=== PATIENT | male | born 1970 | race Caucasian/White ===

== ENCOUNTER 2018-02-02 11:49 | Inpatient (IN) | payer OTHER ==
[2018-02-02 11:56] VITALS: BMI 38.7
[2018-02-02] MEDS ORDERED: SODIUM CHLORIDE 1,000 ML IV STA (12:29)
[2018-02-02 12:49] LABS: BASO % 0.4 % (0-2.0); HEMATOCRIT 34.7 % (35.4-49); HEMOGLOBIN 11.5 GM/dL (11.7-16.9); LYMPH % 6.1 % (8-40); MCH 27.1 pg (25.7-33.7); MCHC 33.2 g/dl (32.0-35.9); MEAN CELL VOLUME 81.6 fl (80-96); MEAN PLT VOLUME 7.9 fl (7.5-11.1); MONO % 10.8 % (3.8-10.2); NEUT % 82.7 % (42.8-82.8); PLATELET COUNT 440 K/MM3 (134-434); RBC 4.25 M/mm3 (4.00-5.60); RDW 17.9 % (11.9-15.9); WHITE BLOOD COUNT 8.5 K/mm3 (4.0-10.0)
[2018-02-02 13:04] LABS: INR 1.68 (0.83-1.09)
--- NOTE | 2018-02-02 13:05 | PDOC ---
History of Present Illness - History of Present Illness Initial Comments: 02/02/18 15:21 The patient is a 47 year old male, with significant past medical history of pancreatic cancer s/p Whipple and on chemotherapy with the most recent dose yesterday (gemcitabine/Abraxane), pancreatitis, ETOH abuse, who presents to the emergency room today complaining of 2 weeks of shortness of breath that occurs while walking short distances. The patient explains that he started feeling weak and short of breath for example when walking across the street. He notes some mild lightheadedness and also reports some congestion, mild productive cough x 2 days. The patient saw his oncologist Dr Kirk yesterday after his chemotherapy treatment and saw his primary care doctor today who advised him to come into the ED. Denies chest pain, chest tightness. Denies recent travel. Denies recent swelling in the legs bilaterally. Denies abdominal pain, nausea, vomiting. Denies fever, chills. Allergies: NKA PCP: Dr. Ramesh () Oncologist: Dr. Kirk <Gin García - Last Filed: 02/02/18 15:21> - General History Source: Patient Exam Limitations: No Limitations <Luciana Ayers - Last Filed: 02/02/18 15:33> - General Chief Complaint: Shortness of Breath Stated Complaint: SHORTNESS OF BREATH Time Seen by Provider: 02/02/18 12:28 Past History <Gin García - Last Filed: 02/02/18 15:21> - Past Medical History Cancer: Yes (PANCREATIC) COPD: No GI Disorders: Yes (pancreatitis) - Surgical History Abdominal Surgery: Yes (WHIPPLE) - Suicide/Smoking/Psychosocial Hx Smoking History: Never smoked Hx Alcohol Use: Yes Drug/Substance Use Hx: No Substance Use Type: Alcohol Hx Substance Use Treatment: No <Luciana Ayers - Last Filed: 02/02/18 15:33> - Past Medical History Allergies/Adverse Reactions: Allergies Allergy/AdvReac Type Severity Reaction Status Date / Time No Known Allergies Allergy Verified 02/02/18 11:57 Home Medications: Ambulatory Orders NK [No Known Home Medication] 02/02/18 Review of Systems - Review of Systems Able to Perform ROS?: Yes Comments:: 02/02/18 15:21 GENERAL/CONSTITUTIONAL: No fever or chills. +weakness HEAD, EYES, EARS, NOSE AND THROAT: +congestion CARDIOVASCULAR: No chest pain or palpitations, syncope or edema. RESPIRATORY: +SOB on exertion, +productive cough. No wheezing, or hemoptysis. GASTROINTESTINAL No nausea/vomiting. No diarrhea or constipation. No bloody stools. GENITOURINARY: No hematuria, dysuria, frequency, urgency or other changes. MUSCULOSKELETAL: No joint or muscle swelling or pain. No neck or back pain. SKIN: No rash or changes in skin color or lesions. NEUROLOGIC: No headache, vertigo, loss of consciousness, or change in strength/ sensation. HEMATOLOGIC/LYMPHATIC: No anemia, easy bruising/bleeding, or history of blood clots. ALLERGIC/IMMUNOLOGIC: No allergies All other systems reviewed and negative, or as documented in HPI <Gin García - Last Filed: 02/02/18 15:21> *Physical Exam - Vital Signs Last Vital Signs Temp Pulse Resp BP Pulse Ox 98.2 F 100 H 22 111/78 99 02/02/18 11:55 02/02/18 11:55 02/02/18 11:55 02/02/18 11:55 02/02/18 11:55 - Physical Exam Comments: 02/02/18 15:21 General: Well appearing, awake and alert, NAD. HEENT: NCAT, PERRL, EOMI, clear conjunctiva, anicteric, moist mucus membranes, clear oropharynx, no oral lesions. Neck: neck supple, FROM Resp: CTAB, normal and even respirations, no respiratory distress CVS: RRR, no murmurs, 2+ peripheral pulses throughout, no peripheral edema Abdomen: +midline abdominal surgical scar. soft, NTND, no peritoneal signs. No CVAT Back: nontender, normal inspection and ROM MSK: no edema, MACHADO x4, ROM intact. No clubbing or cyanosis. normal bulk and tone. No calf tenderness Neuro: alert, oriented appropriately Skin:+midline abdominal surgical scar. warm and well perfused, cap refill <2 sec, normal color <Gin García - Last Filed: 02/02/18 15:21> - Vital Signs Last Vital Signs Temp Pulse Resp BP Pulse Ox 98.2 F 100 H 22 111/78 99 02/02/18 11:55 02/02/18 11:55 02/02/18 11:55 02/02/18 11:55 02/02/18 11:55 <Luciana Ayers - Last Filed: 02/02/18 15:33> Heart Score/ECG Review - ECG Impressions Normal ECG: Yes Comment:: 02/02/18 15:10 EKG normal sinus rhythm, no interval abnormalities, narrow QRS, ST and T wave segments and morphology normal. Nonspecific T wave abnormalities in III, AVF, no prior EKGs for comparison <Luciana Ayers - Last Filed: 02/02/18 15:33> ED Treatment Course - LABORATORY CBC & Chemistry Diagram: 02/02/18 12:35 02/02/18 12:35 - ADDITIONAL ORDERS Additional order review: Laboratory Results 02/02/18 02/02/18 02/02/18 12:35 12:35 12:29 PT with INR 19.00 H INR 1.68 H PTT (Actin FS) 29.5 Sodium 138 Potassium 3.3 L Chloride 106 Carbon Dioxide 25 Anion Gap 7 L BUN 12 Creatinine 0.9 Creat Clearance w eGFR > 60 Random Glucose 88 Calcium 8.5 Total Bilirubin 1.1 H AST 118 H ALT 89 H Alkaline Phosphatase 135 H Troponin I < 0.02 Total Protein 7.5 Albumin 3.4 02/02/18 12:35 RBC 4.25 MCV 81.6 MCHC 33.2 RDW 17.9 H MPV 7.9 D Neutrophils % 82.7 Lymphocytes % 6.1 L D Monocytes % 10.8 H Eosinophils % 0.0 D Basophils % 0.4 - RADIOLOGY Radiograph Interpretation: 02/02/18 15:11 Chest CTA Impression: 1. No evidence of pulmonary embolism. 2. Faint patchy opacification left upper lobe concerning for acute pneumonia 3. diffuse fatty infiltration of the liver - Medications Given in the ED: ED Medications Discontinued Medications Generic Name Dose Route Start Last Admin Trade Name Freq PRN Reason Stop Dose Admin Sodium Chloride 1,000 mls @ 1,000 mls/hr 02/02/18 12:29 02/02/18 14:06 Normal Saline - IV 02/02/18 13:28 1,000 mls/hr ASDIR STA Administration Potassium Chloride 40 meq 02/02/18 14:12 02/02/18 15:00 K-Dur - PO 02/02/18 14:13 40 meq ONCE ONE Administration <Gin García - Last Filed: 02/02/18 15:21> - LABORATORY CBC & Chemistry Diagram: 02/02/18 12:35 02/02/18 12:35 - ADDITIONAL ORDERS Additional order review: 02/02/18 12:35 RBC 4.25 MCV 81.6 MCHC 33.2 RDW 17.9 H MPV 7.9 D Neutrophils % 82.7 Lymphocytes % 6.1 L D Monocytes % 10.8 H Eosinophils % 0.0 D Basophils % 0.4 - RADIOLOGY Radiology Studies Ordered: Category Date Time Status CHEST X-RAY PORTABLE* [RAD] Stat Radiology 02/02/18 12:29 Ordered <Luciana Ayersramiro - Last Filed: 02/02/18 15:33> Medical Decision Making - Medical Decision Making 02/02/18 13:52 Aroldo 47 YOM with history of pancreatitis, ETOH abuse, pancreatic cancer s/p Whipple and currently on Chemo therapy on gemcitabine/Abraxane, last dose yesterday, presenting with progressive SOB with walking/mild exertion. + congestion. No cp or dangelo/dizziness/fever or chills, no n/v/d, abd pain or urinary sx. DDx angina, PE, pneumonia, bronchitis, cardiomyopathy, ACS/electrolyte and metabolic derangements. Pleurisy, pleural effusion. Vital signs reviewed, wnl. notable for HR at 100 Prior notes reviewed, including admissions, discharges and consultations. laboratory results and imaging reviewed, basic labs and lytes wnl, Cr normal. notable for abnormal coags/LFTS in setting of known pancreatic malignancy and on chemo tx. AST>ALT, c/w underlying alcoholic liver disease. EKG normal sinus rhythm, no interval abnormalities, narrow QRS, ST and T wave segments and morphology normal. Nonspecific T wave abnormalities in III, AVF, no prior EKGs for comparison CT chest angio neg for PE. however, patchy infiltrates in left upper lobe c/w pneumonia, IV zosyn for empiric coverage. Blood cultures, lactic acid. IV zosyn for immuncompromised pneumonia. IVF, hydration. no O2 requirements. no indwelling cath/lines. Dispo: admit for pneumonia in immunocompromised patient. Admit to hospitalist, medical management, hydration, abx and further care. 02/02/18 15:31 02/02/18 15:33 <Luciana Ayers - Last Filed: 02/02/18 15:33> *DC/Admit/Observation/Transfer - Attestations Scribe Attestion: 02/02/18 15:21 Documentation prepared by BRICE Trujillo, acting as medical illustrator for Luciana Ayers MD. <Gin García - Last Filed: 02/02/18 15:21> - Discharge Dispostion Decision to Admit order: Yes Decision to Admit order Date/Time: 02/02/18 15:33 Decision to Admit Order Category Date Time Status Decision to Admit to Hospital Routine Admission 02/02/18 15:06 Active - Attestations Physician Attestion: 02/02/18 13:05 I, Luciana Ayers MD, attest that this document has been prepared under my direction and personally reviewed by me in its entirety. I further attest, that it accurately reflects all work, treatment, procedures and medical decision -making performed by me. <Luciana Ayers - Last Filed: 02/02/18 15:33> Diagnosis at time of Disposition: Immunocompromised patient, Pneumonia, Pancreatic cancer - Discharge Dispostion Condition at time of disposition: Guarded - Referrals Referrals: ON STAFF,NOT [Primary Care Provider] - - Patient Instructions - Post Discharge Activity
[2018-02-02 13:07] LABS: ACTIVATED PTT 29.5 SECONDS (25.2-36.5)
[2018-02-02 13:21] LABS: ALBUMIN 3.4 g/dl (3.4-5.0); ALK PHOS 135 U/L (45-117); ANION GAP 7 MMOL/L (8-16); BLOOD UREA NITROGEN 12 mg/dL (7-18); CALCIUM 8.5 mg/dL (8.5-10.1); CHLORIDE 106 mmol/L (98-107); CO2 25 mmol/L (21-32); CREATININE 0.9 mg/dL (0.55-1.3); GLUCOSE,RANDOM 88 mg/dL (74-106); POTASSIUM 3.3 mmol/L (3.5-5.1); SGOT/AST 118 U/L (15-37); SGPT/ALT 89 U/L (13-61); SODIUM 138 mmol/L (136-145); TOT PROT 7.5 g/dl (6.4-8.2)
[2018-02-02 13:34] LABS: BILIRUBIN,TOTAL 1.1 mg/dL (0.2-1)
[2018-02-02] MEDS ORDERED: POTASSIUM CHLORIDE TABS 20 MEQ TABLET.ER (FP) PO ONE ×2 (14:12→14:53)
--- NOTE | 2018-02-02 15:25 | EKG ---
Test Reason : Blood Pressure : / mmHG Vent. Rate : 076 BPM Atrial Rate : 076 BPM P-R Int : 182 ms QRS Dur : 090 ms QT Int : 420 ms P-R-T Axes : 070 004 032 degrees QTc Int : 472 ms NORMAL SINUS RHYTHM NORMAL ECG NO PREVIOUS ECGS AVAILABLE Confirmed by ANANTH FRANCO, RONNIE ([id number]) on 02/02/2018 3:25:02 PM Referred By: Confirmed By:RONNIE WADSWORTH MD
[2018-02-02] MEDS ORDERED: PIPERACILLIN/TAZOB 4.5 GM 4.5 GM in DEXTROSE 5%-WATER 100 ML IVPB ONE (16:13)
[2018-02-02] MEDS ORDERED: PIPERACILLIN/TAZOB 4.5 GM 4.5 GM/100 ML BAG IVPB ONE (16:17)
--- NOTE | 2018-02-02 16:17 | HP ---
CHIEF COMPLAINT: shortness of breath PCP: Dr. Ramesh ([place]) Oncologist: Dr. Kirk HISTORY OF PRESENT ILLNESS: Patient is a 47 year old male with a significant past medical of pancreatic cancer (diagnosed 2015) whipple procedure, pancreatitis and ETOH abuse He is currently undergoing chemotherapy and his last dose was yesterday. Patient presents to the ED today with c/o of dyspnea with physical exertion. He states that is no longer able to ambulate without feeling profoundly fatigued and short of breath. Even when he takes his kids to the school bus across the street, he feels winded and lightheaded. He reports feeling congested with a productive cough. Patient was advised to come to the ED by his PCP after pt reported his weakness and fatigue. ER course was notable for: (1) zosyn iv (2) cta negative for PE, acute pneumonia seen (3) elevated pt/inr (4) k. 3.3, ast 118, alt 89, Recent Travel: PAST MEDICAL HISTORY: pancreatic cancer (diagnosed 2015) whipple procedure, pancreatitis and ETOH abuse PAST SURGICAL HISTORY: whipple procedure Social History: Smoking: none Alcohol: none Drugs: none Family History: Allergies No Known Allergies Allergy (Verified 02/02/18 11:57) HOME MEDICATIONS: Home Medications Medication Instructions Recorded NK [No Known Home Medication] 02/02/18 PHYSICAL EXAMINATION Vital Signs - 24 hr 02/02/18 11:55 Temperature 98.2 F Pulse Rate 100 H Respiratory 22 Rate Blood Pressure 111/78 O2 Sat by Pulse 99 Oximetry (%) GENERAL: Awake, alert, and fully oriented, in no acute distress. HEAD: Normal with no signs of trauma. EYES: Pupils equal, round and reactive to light, extraocular movements intact, sclera anicteric, conjunctiva clear. No lid lag. EARS, NOSE, THROAT: Ears normal, nares patent, oropharynx clear without exudates. Moist mucous membranes. NECK: Normal range of motion, supple without lymphadenopathy, JVD, or masses. LUNGS: breath sounds equal, clear/diminished to auscultation bilaterally. HEART: Regular rate and rhythm, normal S1 and S2 without murmur, rub or gallop. ABDOMEN: Soft, nontender, not distended, normoactive bowel sounds, no guarding, no rebound, no masses. No hepatomegaly or splenomegaly. MUSCULOSKELETAL: Normal range of motion at all joints. No bony deformities or tenderness. No CVA tenderness. UPPER EXTREMITIES: No peripheral edema. LOWER EXTREMITIES: No peripheral edema. NEUROLOGICAL: Normal speech. Normal gait. PSYCHIATRIC: Cooperative. Good eye contact. Appropriate mood and affect. SKIN: Warm, dry, normal turgor, no rashes or lesions noted, normal capillary refill. Laboratory Results - last 24 hr 02/02/18 02/02/18 02/02/18 12:29 12:35 12:35 WBC 8.5 RBC 4.25 Hgb 11.5 L Hct 34.7 L D MCV 81.6 MCH 27.1 MCHC 33.2 RDW 17.9 H Plt Count 440 H D MPV 7.9 D Absolute Neuts (auto) 7.0 Neutrophils % 82.7 Lymphocytes % 6.1 L D Monocytes % 10.8 H Eosinophils % 0.0 D Basophils % 0.4 Nucleated RBC % 0 PT with INR 19.00 H INR 1.68 H PTT (Actin FS) 29.5 Sodium Potassium Chloride Carbon Dioxide Anion Gap BUN Creatinine Creat Clearance w eGFR Random Glucose Lactic Acid Calcium Total Bilirubin AST ALT Alkaline Phosphatase Troponin I < 0.02 B-Natriuretic Peptide Total Protein Albumin 02/02/18 02/02/18 02/02/18 12:35 15:00 15:30 WBC RBC Hgb Hct MCV MCH MCHC RDW Plt Count MPV Absolute Neuts (auto) Neutrophils % Lymphocytes % Monocytes % Eosinophils % Basophils % Nucleated RBC % PT with INR INR PTT (Actin FS) Sodium 138 Potassium 3.3 L Chloride 106 Carbon Dioxide 25 Anion Gap 7 L BUN 12 Creatinine 0.9 Creat Clearance w eGFR > 60 Random Glucose 88 Lactic Acid 1.3 Calcium 8.5 Total Bilirubin 1.1 H AST 118 H ALT 89 H Alkaline Phosphatase 135 H Troponin I B-Natriuretic Peptide 112.96 Total Protein 7.5 Albumin 3.4 ASSESSMENT/PLAN: Patient is a 47 year old male with a significant past medical of pancreatic cancer (diagnosed 2016) whipple procedure, pancreatitis and ETOH abuse He is currently undergoing chemotherapy and his last dose was yesterday. Patient presents to the ED today with c/o of dyspnea with physical exertion. He states that is no longer able to ambulate without feeling profoundly fatigued and short of breath. Even when he takes his kids to the school bus across the street, he feels winded and lightheaded. He reports feeling congested with a productive cough. Patient was advised to come to the ED by his PCP after pt reported his weakness and fatigue. Imaging: Echo: ordered and pending. Chest CTA: negative for PE, acute pneumonia left upper lobe, faint and patchy opacification concerning for acute pneumonia. chest xray: no evidence of acute pulmonary disease EKG: NSR Pulmonary: Pneumonia, in the setting of immunocompromised patient with recent chemotherapy. Increased dyspnea with physical activity, associated with lightheadedness and general malaise. Will order echo. Start patient on Zosyn and contact ID for further recommendations. Patient on current regimen of gemcitabine/Abraxane chemo therapy. Pulmonary consulted. Pancreatic cancer: Currently undergoing chemotherapy (gemcitabine/abraxane). Received Neulasta 1 week ago. Monitor labs. fen tolerating PO monitor electrolytes low salt diet full code Visit type - Emergency Visit Emergency Visit: Yes ED Registration Date: 02/02/18 Care time: The patient presented to the Emergency Department on the above date and was hospitalized for further evaluation of their emergent condition. - New Patient This patient is new to me today: Yes Date on this admission: 02/03/18 - Critical Care Critical Care patient: No Hospitalist Screening - Colonoscopy Questionnaire Colonoscopy Questionnaire: Colonoscopy Questionnaire - Patient: 50 - 75 years old and never had a screening colonoscopy: Unknown History of colon or rectal polyps, or CA: Unknown History of IBD, Crohn's disease or UC: Unknown History of abdominal radiation therapy as a child: Unknown - Relative: 1 with colon or rectal CA, or polyps at age 60 or younger: Unknown Colon or rectal CA diagnosed at age 45 or younger: Unknown Multiple relatives with colon or rectal CA: Unknown - Outcome: Screening Result: Negative Screen
[2018-02-02] MEDS ORDERED: oxyCODONE HCL 5 MG TABLET PO PRN (20:07)
[2018-02-02] MEDS: HEPARIN NA (PORCINE) 5,000 UNITS/ML 1ML VIAL SQ SCH (22:09)
[2018-02-03] MEDS ORDERED: PIPERACILLIN/TAZOB 3.375 GM 3.375 GM in DEXTROSE 5%-WATER - 50 ML IVPB ONE
[2018-02-03] MEDS ORDERED: PIPERACILLIN/TAZOBACTAM 3.375 GM VIAL IVPB ONE ×4 (00:32→18:13)
[2018-02-03] MEDS ORDERED: DEXTROSE 5%-WATER - 50 ML IVPB ONE ×4 (00:33→18:13)
[2018-02-03] MEDS: MELATONIN 5 MG TABLETS PO PRN (00:56)
[2018-02-03] MEDS: PIPERACILLIN/TAZOB 3.375 GM 3.375 GM in DEXTROSE 5%-WATER - 50 ML IVPB SCH ×4 (05:06→18:17)
[2018-02-03 06:51] LABS: HEMATOCRIT 28.1 % (35.4-49); HEMOGLOBIN 9.2 GM/dL (11.7-16.9); MCHC 32.7 g/dl (32.0-35.9); MEAN CELL VOLUME 82.4 fl (80-96); PLATELET COUNT 245 K/MM3 (134-434); RBC 3.41 M/mm3 (4.00-5.60); RDW 18.2 % (11.9-15.9); WHITE BLOOD COUNT 3.3 K/mm3 (4.0-10.0)
[2018-02-03 07:25] LABS: INR 1.67 (0.83-1.09); PROTHROMBIN TIME (PATIENT) 18.9 SEC (9.7-13.0)
[2018-02-03] MEDS ORDERED: POTASSIUM CHLORIDE ORAL LIQUID 20 MEQ/15 ML PO ONE (07:36)
[2018-02-03] MEDS: LIPASE/PROTEASE/AMYLASE 36,000 UNIT CAPSULE PO SCH ×3 (09:14→18:17)
[2018-02-03] MEDS: HEPARIN NA (PORCINE) 5,000 UNITS/ML 1ML VIAL SQ SCH ×2 (09:14→22:55)
--- NOTE | 2018-02-03 10:30 | CON.ID ---
Consult Consult Specialty:: infectious diseases Reason for Consultation:: pneumonia - History of Present Illness Chief Complaint: sob History of Present Illness: 47 year old male with a significant past medical of pancreatic cancer ( diagnosed 2016) whipple procedure, pancreatitis and ETOH abuse He is currently undergoing chemotherapy and his last dose was yesterday. patient mentions that he had been doing well then he noticed he started becoming sob and then it increased and patient went to his oncologist qasim directed him to go to the hospital He also spoke with primary who told him to to go to the hospital patient came to the hospital was worked up and found to have pneumonia and patient was admitted to the hospital . He reports feeling congested with a productive cough. currently lying down he feels better - History Source History Provided By: Patient Limitations to Obtaining History: No Limitations - Past Medical History RN ANESTHETIST: Yes: CVA Gastrointestinal: Yes: Pancreatitis - Alcohol/Substance Use Hx Alcohol Use: Yes - Smoking History Smoking history: Former smoker Have you smoked in the past 12 months: No If you are a former smoker, when did you quit?: 2017 Home Medications - Allergies Allergies/Adverse Reactions: Allergies Allergy/AdvReac Type Severity Reaction Status Date / Time No Known Allergies Allergy Verified 02/02/18 11:57 - Home Medications Home Medications: Ambulatory Orders NK [No Known Home Medication] 02/02/18 Family Disease History - Family Disease History Family Disease History: Other: Father (pancreatitis) Review of Systems - Review of Systems Constitutional: reports: No Symptoms Eyes: reports: No Symptoms HENT: reports: No Symptoms Neck: reports: No Symptoms Cardiovascular: reports: No Symptoms Respiratory: reports: SOB, SOB on Exertion Gastrointestinal: reports: No Symptoms Genitourinary: reports: No Symptoms Musculoskeletal: reports: No Symptoms Integumentary: reports: No Symptoms Neurological: reports: No Symptoms Endocrine: reports: No Symptoms Hematology/Lymphatic: reports: No Symptoms Psychiatric: reports: No Symptoms Physical Exam Vital Signs: Vital Signs Temperature 98.6 F 02/03/18 06:00 Pulse Rate 72 02/03/18 06:00 Respiratory Rate 02/03/18 06:00 Blood Pressure 105/67 02/03/18 06:00 O2 Sat by Pulse Oximetry (%) 92 L 02/02/18 20:46 Constitutional: Yes: Well Nourished, No Distress, Calm HENT: Yes: Atraumatic Neck: Yes: Supple, Trachea Midline Cardiovascular: Yes: Regular Rate and Rhythm Respiratory: Yes: Regular, CTA Bilaterally Gastrointestinal: Yes: Normal Bowel Sounds, Soft Musculoskeletal: Yes: WNL Extremities: Yes: WNL Neurological: Yes: Alert, Oriented Psychiatric: Yes: Alert, Oriented Labs: CBC, BMP 02/03/18 06:30 02/03/18 06:30 Imaging - Results Chest X-ray: Report Reviewed, Image Reviewed Cat Scan: Report Reviewed, Image Reviewed Assessment/Plan Problem List - Problems (1) SOB (shortness of breath) Code(s): R06.02 - SHORTNESS OF BREATH (2) Immunocompromised patient Code(s): D84.9 - IMMUNODEFICIENCY, UNSPECIFIED (3) Pancreatic cancer Code(s): C25.9 - MALIGNANT NEOPLASM OF PANCREAS, UNSPECIFIED (4) Pneumonia Code(s): J18.9 - PNEUMONIA, UNSPECIFIED ORGANISM pln in view of his history we will start him on iv abx monitor for any fevers incentive bonnie rest as per the team close watch on wbc as he has received recent chemo,might decrease
--- NOTE | 2018-02-03 11:27 | PN ---
Physical Exam: SUBJECTIVE: Patient seen and examined at the bedside. Feeling better, denies chest pain or shortness of breath. OBJECTIVE: zosyn day 2 Vital Signs Period Temp Pulse Resp BP Sys/Ortiz Pulse Ox Last 24 Hr 98.2 F-98.6 F 72-100 16-22 100-117/65-78 92-99 GENERAL: Awake, alert, and fully oriented, in no acute distress. HEAD: Normal with no signs of trauma. EYES: Pupils equal, round and reactive to light, extraocular movements intact, sclera anicteric, conjunctiva clear. No lid lag. EARS, NOSE, THROAT: Ears normal, nares patent, oropharynx clear without exudates. Moist mucous membranes. NECK: Normal range of motion, supple without lymphadenopathy, JVD, or masses. LUNGS: breath sounds equal, clear/diminished to auscultation bilaterally. HEART: Regular rate and rhythm, normal S1 and S2 without murmur, rub or gallop. ABDOMEN: Soft, nontender, not distended, normoactive bowel sounds, no guarding, no rebound, no masses. No hepatomegaly or splenomegaly. MUSCULOSKELETAL: Normal range of motion at all joints. No bony deformities or tenderness. No CVA tenderness. UPPER EXTREMITIES: No peripheral edema. LOWER EXTREMITIES: No peripheral edema. NEUROLOGICAL: Normal speech. Normal gait. PSYCHIATRIC: Cooperative. Good eye contact. Appropriate mood and affect. SKIN: Warm, dry, normal turgor, no rashes or lesions noted, normal capillary refill. Laboratory Results - last 24 hr 02/02/18 02/02/18 02/02/18 12:29 12:35 12:35 WBC 8.5 RBC 4.25 Hgb 11.5 L Hct 34.7 L D MCV 81.6 MCH 27.1 MCHC 33.2 RDW 17.9 H Plt Count 440 H D MPV 7.9 D Absolute Neuts (auto) 7.0 Neutrophils % 82.7 Lymphocytes % 6.1 L D Monocytes % 10.8 H Eosinophils % 0.0 D Basophils % 0.4 Nucleated RBC % 0 PT with INR 19.00 H INR 1.68 H PTT (Actin FS) 29.5 Sodium Potassium Chloride Carbon Dioxide Anion Gap BUN Creatinine Creat Clearance w eGFR Random Glucose Lactic Acid Calcium Magnesium Total Bilirubin AST ALT Alkaline Phosphatase Troponin I < 0.02 B-Natriuretic Peptide Total Protein Albumin Blood Type Antibody Screen 02/02/18 02/02/18 02/02/18 12:35 15:00 15:30 WBC RBC Hgb Hct MCV MCH MCHC RDW Plt Count MPV Absolute Neuts (auto) Neutrophils % Lymphocytes % Monocytes % Eosinophils % Basophils % Nucleated RBC % PT with INR INR PTT (Actin FS) Sodium 138 Potassium 3.3 L Chloride 106 Carbon Dioxide 25 Anion Gap 7 L BUN 12 Creatinine 0.9 Creat Clearance w eGFR > 60 Random Glucose 88 Lactic Acid 1.3 Calcium 8.5 Magnesium Total Bilirubin 1.1 H AST 118 H ALT 89 H Alkaline Phosphatase 135 H Troponin I B-Natriuretic Peptide 112.96 Total Protein 7.5 Albumin 3.4 Blood Type Antibody Screen 02/02/18 02/02/18 02/03/18 22:00 22:00 01:15 WBC RBC Hgb Hct MCV MCH MCHC RDW Plt Count MPV Absolute Neuts (auto) Neutrophils % Lymphocytes % Monocytes % Eosinophils % Basophils % Nucleated RBC % PT with INR INR PTT (Actin FS) Sodium Potassium Chloride Carbon Dioxide Anion Gap BUN Creatinine Creat Clearance w eGFR Random Glucose Lactic Acid Calcium Magnesium Total Bilirubin AST ALT Alkaline Phosphatase Troponin I < 0.02 B-Natriuretic Peptide Total Protein Albumin Blood Type A POSITIVE A POSITIVE Antibody Screen Negative 02/03/18 02/03/18 02/03/18 06:30 06:30 06:30 WBC 3.3 L RBC 3.41 L Hgb 9.2 L Hct 28.1 L D MCV 82.4 MCH 27.0 MCHC 32.7 RDW 18.2 H Plt Count 245 D MPV 8.0 Absolute Neuts (auto) Neutrophils % Lymphocytes % Monocytes % Eosinophils % Basophils % Nucleated RBC % PT with INR 18.90 H INR 1.67 H PTT (Actin FS) Sodium 143 Potassium 3.4 L Chloride 111 H Carbon Dioxide 26 Anion Gap 6 L BUN 10 Creatinine 0.9 Creat Clearance w eGFR > 60 Random Glucose 99 Lactic Acid Calcium 7.9 L Magnesium 2.3 Total Bilirubin AST ALT Alkaline Phosphatase Troponin I B-Natriuretic Peptide Total Protein Albumin Blood Type Antibody Screen Active Medications Generic Name Dose Route Start Last Admin Trade Name Freq PRN Reason Stop Dose Admin Heparin Sodium (Porcine) 5,000 unit 02/02/18 22:00 02/03/18 09:14 Heparin - SQ 5,000 unit BID LUIS Administration Piperacillin Sod/Tazobactam 50 mls @ 100 mls/hr 02/02/18 21:45 02/03/18 09:14 Sod 3.375 gm/ Dextrose IVPB 100 mls/hr Q8H-IV LUIS Administration Protocol Melatonin 5 mg 02/03/18 00:48 02/03/18 00:56 Melatonin PO 5 mg HS PRN Administration INSOMNIA Oxycodone HCl 10 mg 02/02/18 20:07 Roxicodone - PO Q6H PRN PAIN LEVEL 7 - 10 Pancrelipase 1 cap 02/03/18 08:00 02/03/18 09:14 Creon 36,000 Units Capsule PO 1 cap TIDCM LUIS Administration ASSESSMENT/PLAN: Patient is a 47 year old male with a significant past medical of pancreatic cancer (diagnosed 2016) whipple procedure, pancreatitis and ETOH abuse He is currently undergoing chemotherapy and his last dose was yesterday. Patient presents to the ED today with c/o of dyspnea with physical exertion. He states that is no longer able to ambulate without feeling profoundly fatigued and short of breath. Even when he takes his kids to the school bus across the street, he feels winded and lightheaded. He reports feeling congested with a productive cough. Patient was advised to come to the ED by his PCP after pt reported his weakness and fatigue. Imaging: Echo: ordered and pending. Chest CTA: negative for PE, acute pneumonia left upper lobe, faint and patchy opacification concerning for acute pneumonia. chest xray: no evidence of acute pulmonary disease EKG: NSR Pulmonary: Pneumonia, in the setting of immunocompromised patient with recent chemotherapy. Increased dyspnea with physical activity, associated with lightheadedness and general malaise. Will order echo. on Zosyn day #2. ID and pulmonary following. Patient on current regimen of gemcitabine/Abraxane chemo therapy. Pancreatic cancer: Currently undergoing chemotherapy (gemcitabine/abraxane). Received Neulasta 1 week ago. Monitor labs. fen tolerating PO monitor electrolytes low salt diet full code Visit type - Emergency Visit Emergency Visit: Yes ED Registration Date: 02/02/18 Care time: The patient presented to the Emergency Department on the above date and was hospitalized for further evaluation of their emergent condition. - New Patient This patient is new to me today: No - Critical Care Critical Care patient: No - Discharge Referral Referred to [facility] Med P.C.: No
[2018-02-03 12:39] LABS: ANION GAP 6 MMOL/L (8-16); BLOOD UREA NITROGEN 10 mg/dL (7-18); CALCIUM 7.6 mg/dL (8.5-10.1); CHLORIDE 110 mmol/L (98-107); CO2 26 mmol/L (21-32); CREATININE 0.9 mg/dL (0.55-1.3); GLUCOSE,RANDOM 98 mg/dL (74-106); MAGNESIUM 2.3 mg/dL (1.8-2.4); POTASSIUM 3.4 mmol/L (3.5-5.1); SGOT/AST 121 U/L (15-37); SGPT/ALT 94 U/L (13-61); SODIUM 142 mmol/L (136-145)
--- NOTE | 2018-02-03 13:21 | ECHO ---
Name: FELI HODGE Exam:Adult Echocardiogram Study Date: 02/03/2018 08:17 AM Age: 47 yrs Reason For Study: DYSPNEA Height: 66 in Weight: 240 lb BSA: 2.2 m2 MMode/2D Measurements & Calculations IVSd: 0.77 cm Ao root diam: 3.0 cm LVIDd: 4.4 cm LA dimension: 3.2 cm LVIDs: 2.8 cm LVPWd: 0.75 cm EDV(Teich): 89.7 ml ESV(Teich): 30.8 ml Doppler Measurements & Calculations MV E max kari: 77.0 cm/sec MV A max kari: 58.2 cm/sec MV E/A: 1.3 MV dec time: 0.22 sec Procedure A complete two-dimensional transthoracic echocardiogram was performed (2D, M-mode, Doppler and color flow Doppler). The study was technically difficult with many images being suboptimal in quality. Left Ventricle The left ventricular size, thickness and function are normal. Ejection Fraction = 55-60%. The left ve ntricular ejection fraction is normal. No regional wall motion abnormalities noted. Regional wall motion abnorm alities cannot be excluded due to limited visualization. Right Ventricle The right ventricle is normal in size and function. Atria Normal left and right atrial size and function. Mitral Valve There is no mitral regurgitation noted. Tricuspid Valve There is trace tricuspid regurgitation. There was insufficient TR detected to calculate RV systolic p ressure. Aortic Valve No hemodynamically significant valvular aortic stenosis. No aortic regurgitation is present. Pulmonic Valve There is no pulmonic valvular regurgitation. Great Vessels The aortic root is normal size. Pericardium/Pleura There is no pericardial effusion. Interpretation Summary The study was technically difficult. The left ventricular size, thickness and function are normal. The right ventricle is normal in size and function. There is trace tricuspid regurgitation. MD Zhou Yousif 02/03/2018 01:21 PM
[2018-02-03 14:06] LABS: URINE APPEARANCE CLEAR; URINE BILIRUBIN NEGATIVE (<2.0 mg/dL); URINE COLOR LTYELLOW; URINE GLUCOSE (UA) NEGATIVE (NEGATIVE); URINE KETONE NEGATIVE (NEGATIVE); URINE LEUK ESTERASE NEGATIVE (NEGATIVE); URINE NITRITE NEGATIVE (NEGATIVE); URINE PROTEIN NEGATIVE (NEGATIVE); URINE UROBILINOGEN NEGATIVE mg/dL (0.2-1.0)
--- NOTE | 2018-02-03 14:08 | CON.PULM ---
Consult Consult Specialty:: PULM/CCM Referred by:: Hospitalist Reason for Consultation:: SOB - History of Present Illness Chief Complaint: SOB History of Present Illness: 47 M, known medical history of pancreatic cancer diagnosed in 2016, S/P whipple procedure, pancreatitis and ETOH abuse. He is currently undergoing chemotherapy and his last dose was Wednesday ([place]/Abraxane). Has received FOLFOX / Gemzar / RT / FOLFIRI in the past. No previous PNA or Pulmonary infections. He has had previous CT imaging but does not recall any abnormalities. No fever or chills. No night sweats or hemoptysis. Has been experiencing CERDA for the past few weeks. Cough has been essentially dry. CTA: (-) PE / diffuse hazy parenchymal process / no consolidations or bronchiectasis. - History Source History Provided By: Patient Limitations to Obtaining History: No Limitations - Past Medical History CONTENT CURATOR: Yes: CVA Gastrointestinal: Yes: Pancreatitis Heme/Onc: Yes: Other (pancreatic cancer ) - Alcohol/Substance Use Hx Alcohol Use: Yes - Smoking History Smoking history: Former smoker Have you smoked in the past 12 months: No If you are a former smoker, when did you quit?: 2017 Home Medications - Allergies Allergies/Adverse Reactions: Allergies Allergy/AdvReac Type Severity Reaction Status Date / Time No Known Allergies Allergy Verified 02/02/18 11:57 - Home Medications Home Medications: Ambulatory Orders NK [No Known Home Medication] 02/02/18 Family Disease History - Family Disease History Family Disease History: Other: Father (pancreatitis) Review of Systems - Review of Systems Constitutional: reports: Malaise. denies: Chills, Fever, Night Sweats Eyes: reports: No Symptoms HENT: reports: No Symptoms Neck: reports: No Symptoms Cardiovascular: reports: Shortness of Breath. denies: Chest Pain, Edema, Palpitations Respiratory: reports: Cough, Snoring, SOB, SOB on Exertion. denies: Hemoptysis , Orthopnea, PND, Wheezing Gastrointestinal: reports: No Symptoms Genitourinary: reports: No Symptoms Breasts: reports: No Symptoms Reported Musculoskeletal: reports: No Symptoms Integumentary: reports: No Symptoms Neurological: reports: No Symptoms Endocrine: reports: No Symptoms Hematology/Lymphatic: reports: No Symptoms Psychiatric: reports: No Symptoms Physical Exam Vital Sings: Vital Signs Temperature 98.6 F 02/03/18 06:00 Pulse Rate 72 02/03/18 06:00 Respiratory Rate 20 02/03/18 06:00 Blood Pressure 105/67 02/03/18 06:00 O2 Sat by Pulse Oximetry (%) 92 L 02/02/18 20:46 Constitutional: Yes: No Distress, Calm Eyes: Yes: Conjunctiva Clear, EOM Intact HENT: Yes: Atraumatic, Normocephalic Neck: Yes: Supple, Trachea Midline Cardiovascular: Yes: Regular Rate and Rhythm Respiratory: Yes: CTA Bilaterally, Cough, Diminished, SOB on Exertion. No: Accessory Muscle Use, On Nasal O2, Rales, Rhonchi, SOB, Stridor, Tachypnea, Wheezes ...Inspection: Yes: WNL ...Clubbing: No Gastrointestinal: Yes: Normal Bowel Sounds, Soft Renal/: Yes: WNL Breast(s): Yes: WNL Musculoskeletal: Yes: WNL Extremities: Yes: WNL Edema: No Peripheral Pulses WNL: Yes Integumentary: Yes: WNL Neurological: Yes: Alert, Oriented ...Motor Strength: WNL Psychiatric: Yes: WNL, Alert, Oriented Labs: CBC, BMP 02/03/18 06:30 02/03/18 06:30 Imaging - Results Chest X-ray: Report Reviewed, Image Reviewed Cat Scan: Report Reviewed, Image Reviewed Problem List - Problems (1) SOB (shortness of breath) Code(s): R06.02 - SHORTNESS OF BREATH (2) Immunocompromised patient Code(s): D84.9 - IMMUNODEFICIENCY, UNSPECIFIED (3) Pancreatic cancer Code(s): C25.9 - MALIGNANT NEOPLASM OF PANCREAS, UNSPECIFIED (4) Pneumonia Code(s): J18.9 - PNEUMONIA, UNSPECIFIED ORGANISM Assessment/Plan Check sputum Check urine antigen ABX per ID: Zosyn O2 as needed VTE prophylaxis Question whether this is a chronic issue (related to previous chemotherapy) or related to his Chemo. ie.: Gemzar reported to cause interstitial pneumonitis and eventually pulmonary fibrosis. Monitor off systemic steroids for now; if he becomes hypoxic or increased WOB: can add steroids at that time. Advised patient that he should bring a copy of the CT chest done at [facility] to his oncologist at [facility]. Will follow. Dr Cordero
[2018-02-04] MEDS ORDERED: PIPERACILLIN/TAZOBACTAM 3.375 GM VIAL IVPB ONE ×3 (01:54→17:08)
[2018-02-04] MEDS ORDERED: DEXTROSE 5%-WATER - 50 ML IVPB ONE ×3 (01:54→17:08)
[2018-02-04] MEDS: PIPERACILLIN/TAZOB 3.375 GM 3.375 GM in DEXTROSE 5%-WATER - 50 ML IVPB SCH ×3 (01:59→17:33)
[2018-02-04 07:18] LABS: EOS % 1.8 % (0-4.5); HEMATOCRIT 27.3 % (35.4-49); HEMOGLOBIN 9.1 GM/dL (11.7-16.9); MCHC 33.2 g/dl (32.0-35.9); MEAN CELL VOLUME 81.3 fl (80-96); MEAN PLT VOLUME 8.2 fl (7.5-11.1); MONO % 2.1 % (3.8-10.2); NEUT % 82.1 % (42.8-82.8); PLATELET COUNT 241 K/MM3 (134-434); RBC 3.36 M/mm3 (4.00-5.60); WHITE BLOOD COUNT 2.8 K/mm3 (4.0-10.0)
[2018-02-04 07:48] LABS: ALBUMIN 2.7 g/dl (3.4-5.0); ALK PHOS 102 U/L (45-117); ANION GAP 3 MMOL/L (8-16); BILIRUBIN,TOTAL 0.9 mg/dL (0.2-1); BLOOD UREA NITROGEN 8 mg/dL (7-18); CHLORIDE 106 mmol/L (98-107); CO2 30 mmol/L (21-32); CREATININE 0.8 mg/dL (0.55-1.3); GLUCOSE,RANDOM 102 mg/dL (74-106); MAGNESIUM 2.2 mg/dL (1.8-2.4); POTASSIUM 3.7 mmol/L (3.5-5.1); SGOT/AST 93 U/L (15-37); SGPT/ALT 93 U/L (13-61); SODIUM 138 mmol/L (136-145); TOT PROT 5.9 g/dl (6.4-8.2)
[2018-02-04] MEDS: LIPASE/PROTEASE/AMYLASE 36,000 UNIT CAPSULE PO SCH ×3 (08:52→17:33)
--- NOTE | 2018-02-04 09:09 | PN ---
Progress Note, Physician History of Present Illness: doing well feels better no complaints no coughing - Current Medication List Current Medications: Active Medications Heparin Sodium (Porcine) (Heparin -) 5,000 unit SQ BID LUIS Last Admin: 02/03/18 22:55 Dose: 5,000 unit Piperacillin Sod/Tazobactam (Sod 3.375 gm/ Dextrose) 50 mls @ 100 mls/hr IVPB Q8H-IV LUIS; Protocol Last Admin: 02/04/18 01:59 Dose: 100 mls/hr Melatonin (Melatonin) 5 mg PO HS PRN PRN Reason: INSOMNIA Last Admin: 02/03/18 00:56 Dose: 5 mg Oxycodone HCl (Roxicodone -) 10 mg PO Q6H PRN PRN Reason: PAIN LEVEL 7 - 10 Pancrelipase (Creon Dr 36,000 Units Capsule) 1 cap PO TIDCM LUIS Last Admin: 02/04/18 08:52 Dose: 1 cap - Objective Vital Signs: Vital Signs Temperature 98.9 F 02/04/18 09:01 Pulse Rate 87 02/04/18 09:01 Respiratory Rate 20 02/04/18 09:01 Blood Pressure 99/58 L 02/04/18 09:01 O2 Sat by Pulse Oximetry (%) 95 02/03/18 20:51 Constitutional: Yes: No Distress, Calm Cardiovascular: Yes: Regular Rate and Rhythm Respiratory: Yes: Regular, CTA Bilaterally Gastrointestinal: Yes: Normal Bowel Sounds, Soft Musculoskeletal: Yes: WNL Extremities: Yes: WNL Neurological: Yes: Alert, Oriented Psychiatric: Yes: Alert, Oriented Labs: CBC, BMP 02/04/18 06:35 02/04/18 06:35 INR, PTT INR 1.67 (0.83-1.09) H 02/03/18 06:30 Assessment/Plan Problem List - Problems (1) SOB (shortness of breath) Code(s): R06.02 - SHORTNESS OF BREATH (2) Immunocompromised patient Code(s): D84.9 - IMMUNODEFICIENCY, UNSPECIFIED (3) Pancreatic cancer Code(s): C25.9 - MALIGNANT NEOPLASM OF PANCREAS, UNSPECIFIED (4) Pneumonia Code(s): J18.9 - PNEUMONIA, UNSPECIFIED ORGANISM pln continue abx monitor for any fevers incentive bonnie rest as per the team await for cx monitor wbc
[2018-02-04] MEDS: HEPARIN NA (PORCINE) 5,000 UNITS/ML 1ML VIAL SQ SCH ×3 (10:03→21:16)
--- NOTE | 2018-02-04 13:30 | PN ---
Physical Exam: SUBJECTIVE: Patient seen and examined at the bedside. Feels better. wants to go home. OBJECTIVE: Vital Signs Period Temp Pulse Resp BP Sys/Ortiz Pulse Ox Last 24 Hr 98.7 F-99.2 F 73-87 20-20 99-122/58-74 95 GENERAL: Awake, alert, and fully oriented, in no acute distress. HEAD: Normal with no signs of trauma. EYES: Pupils equal, round and reactive to light, extraocular movements intact, sclera anicteric, conjunctiva clear. No lid lag. EARS, NOSE, THROAT: Ears normal, nares patent, oropharynx clear without exudates. Moist mucous membranes. NECK: Normal range of motion, supple without lymphadenopathy, JVD, or masses. LUNGS: breath sounds equal, clear/diminished to auscultation bilaterally. HEART: Regular rate and rhythm, normal S1 and S2 without murmur, rub or gallop. ABDOMEN: Soft, nontender, not distended, normoactive bowel sounds, no guarding, no rebound, no masses. No hepatomegaly or splenomegaly. MUSCULOSKELETAL: Normal range of motion at all joints. No bony deformities or tenderness. No CVA tenderness. UPPER EXTREMITIES: No peripheral edema. LOWER EXTREMITIES: No peripheral edema. NEUROLOGICAL: Normal speech. Normal gait. PSYCHIATRIC: Cooperative. Good eye contact. Appropriate mood and affect. SKIN: Warm, dry, normal turgor, no rashes or lesions noted, normal capillary refill. Laboratory Results - last 24 hr 02/03/18 02/04/18 02/04/18 12:30 06:35 06:35 WBC 2.8 L RBC 3.36 L Hgb 9.1 L Hct 27.3 L MCV 81.3 MCH 27.0 MCHC 33.2 RDW 18.0 H Plt Count 241 MPV 8.2 Absolute Neuts (auto) 2.3 Neutrophils % 82.1 Lymphocytes % 13.0 D Monocytes % 2.1 L D Eosinophils % 1.8 D Basophils % 1.0 Nucleated RBC % 0 Sodium 138 Potassium 3.7 Chloride 106 Carbon Dioxide 30 Anion Gap 3 L BUN 8 Creatinine 0.8 Creat Clearance w eGFR > 60 Random Glucose 102 Calcium 8.0 L Magnesium 2.2 Total Bilirubin 0.9 AST 93 H ALT 93 H Alkaline Phosphatase 102 Total Protein 5.9 L Albumin 2.7 L Urine Color Ltyellow Urine Appearance Clear Urine pH 6.0 Ur Specific [place] 1.018 Urine Protein Negative Urine Glucose (UA) Negative Urine Ketones Negative Urine Blood Negative Urine Nitrite Negative Urine Bilirubin Negative Urine Urobilinogen Negative Ur Leukocyte Esterase Negative Active Medications Generic Name Dose Route Start Last Admin Trade Name Freq PRN Reason Stop Dose Admin Heparin Sodium (Porcine) 5,000 unit 02/02/18 22:00 02/04/18 10:45 Heparin - SQ Not Given BID LUIS Piperacillin Sod/Tazobactam 50 mls @ 100 mls/hr 02/02/18 21:45 02/04/18 10:03 Sod 3.375 gm/ Dextrose IVPB 100 mls/hr Q8H-IV LUIS Administration Protocol Melatonin 5 mg 02/03/18 00:48 02/03/18 00:56 Melatonin PO 5 mg HS PRN Administration INSOMNIA Oxycodone HCl 10 mg 02/02/18 20:07 Roxicodone - PO Q6H PRN PAIN LEVEL 7 - 10 Pancrelipase 1 cap 02/03/18 08:00 02/04/18 11:[address] 36,000 Units Capsule PO 1 cap TIDCM LUIS Administration ASSESSMENT/PLAN: Patient is a 47 year old male with a significant past medical of pancreatic cancer (diagnosed 2016) whipple procedure, pancreatitis and ETOH abuse He is currently undergoing chemotherapy. Patient presents to the ED with c/o of dyspnea with physical exertion and was found to have an acute pneumonia. Imaging: Chest CTA: negative for PE, acute pneumonia left upper lobe, faint and patchy opacification concerning for acute pneumonia. chest xray: no evidence of acute pulmonary disease EKG: NSR Pulmonary: Pneumonia, in the setting of immunocompromised patient with recent chemotherapy. Increased dyspnea with physical activity, associated with lightheadedness and general malaise. echo reviewed. on Zosyn day #3. ID and pulmonary following. Patient on current regimen of gemcitabine/Abraxane chemo therapy. sputum culture pending. Pancreatic cancer: Currently undergoing chemotherapy (gemcitabine/abraxane). Received Neulasta 1 month ago. Monitor labs. fen tolerating PO monitor electrolytes low salt diet full code Visit type - Emergency Visit Emergency Visit: Yes ED Registration Date: 02/02/18 Care time: The patient presented to the Emergency Department on the above date and was hospitalized for further evaluation of their emergent condition. - New Patient This patient is new to me today: No - Critical Care Critical Care patient: No - Discharge Referral Referred to [facility] Med P.C.: No
--- NOTE | 2018-02-04 13:51 | PN ---
Progress Note, Physician History of Present Illness: PULMONARY ALERT,NO COMPLAINTS,-SOB,MIN COUGH - Current Medication List Current Medications: Active Medications Heparin Sodium (Porcine) (Heparin -) 5,000 unit SQ BID LUIS Last Admin: 02/04/18 10:45 Dose: Not Given Piperacillin Sod/Tazobactam (Sod 3.375 gm/ Dextrose) 50 mls @ 100 mls/hr IVPB Q8H-IV LUIS; Protocol Last Admin: 02/04/18 10:03 Dose: 100 mls/hr Melatonin (Melatonin) 5 mg PO HS PRN PRN Reason: INSOMNIA Last Admin: 02/03/18 00:56 Dose: 5 mg Oxycodone HCl (Roxicodone -) 10 mg PO Q6H PRN PRN Reason: PAIN LEVEL 7 - 10 Pancrelipase (Creon Dr 36,000 Units Capsule) 1 cap PO TIDCM LUIS Last Admin: 02/04/18 11:45 Dose: 1 cap - Objective Vital Signs: Vital Signs Temperature 98.9 F 02/04/18 09:01 Pulse Rate 87 02/04/18 09:01 Respiratory Rate 20 02/04/18 09:01 Blood Pressure 99/58 L 02/04/18 09:01 O2 Sat by Pulse Oximetry (%) 95 02/03/18 20:51 Constitutional: Yes: Well Nourished, Calm Eyes: Yes: WNL HENT: Yes: WNL Neck: Yes: WNL Cardiovascular: Yes: Regular Rate and Rhythm, S1, S2 Respiratory: Yes: CTA Bilaterally Gastrointestinal: Yes: Normal Bowel Sounds, Soft Extremities: Yes: WNL Edema: No Labs: CBC, BMP 02/04/18 06:35 02/04/18 06:35 INR, PTT INR 1.67 (0.83-1.09) H 02/03/18 06:30 Assessment/Plan Problem List - Problems (1) SOB (shortness of breath) Code(s): R06.02 - SHORTNESS OF BREATH (2) Immunocompromised patient Code(s): D84.9 - IMMUNODEFICIENCY, UNSPECIFIED (3) Pancreatic cancer Code(s): C25.9 - MALIGNANT NEOPLASM OF PANCREAS, UNSPECIFIED (4) Pneumonia Code(s): J18.9 - PNEUMONIA, UNSPECIFIED ORGANISM Assessment/Plan ABX per ID: Zosyn O2 as needed VTE prophylaxis Question whether this is a chronic issue (related to previous chemotherapy) or related to his Chemo. ie.: Gemzar reported to cause interstitial pneumonitis and eventually pulmonary fibrosis. Monitor off systemic steroids for now; if he becomes hypoxic or increased WOB: can add steroids at that time. DR SEYMOUR
[2018-02-04] MEDS: MELATONIN 5 MG TABLETS PO PRN (21:15)
[2018-02-05] MEDS ORDERED: PIPERACILLIN/TAZOBACTAM 3.375 GM VIAL IVPB ONE ×3 (02:16→16:58)
[2018-02-05] MEDS ORDERED: DEXTROSE 5%-WATER - 50 ML IVPB ONE ×3 (02:16→16:58)
[2018-02-05] MEDS: PIPERACILLIN/TAZOB 3.375 GM 3.375 GM in DEXTROSE 5%-WATER - 50 ML IVPB SCH ×3 (02:33→17:24)
[2018-02-05] MEDS: LIPASE/PROTEASE/AMYLASE 36,000 UNIT CAPSULE PO SCH ×3 (08:15→17:24)
[2018-02-05 08:30] LABS: BASO % 1.2 % (0-2.0); EOS % 4.3 % (0-4.5); HEMATOCRIT 30.4 % (35.4-49); HEMOGLOBIN 9.7 GM/dL (11.7-16.9); LYMPH % 11.5 % (8-40); MCH 26.5 pg (25.7-33.7); MEAN CELL VOLUME 82.8 fl (80-96); MEAN PLT VOLUME 8.1 fl (7.5-11.1); MONO % 1.2 % (3.8-10.2); NEUT % 81.8 % (42.8-82.8); PLATELET COUNT 291 K/MM3 (134-434); RBC 3.67 M/mm3 (4.00-5.60); RDW 18.2 % (11.9-15.9); WHITE BLOOD COUNT 2.8 K/mm3 (4.0-10.0)
[2018-02-05 09:13] LABS: ALK PHOS 114 U/L (45-117); ANION GAP 10 MMOL/L (8-16); BILIRUBIN,TOTAL 0.8 mg/dL (0.2-1); BLOOD UREA NITROGEN 7 mg/dL (7-18); CALCIUM 8.8 mg/dL (8.5-10.1); CHLORIDE 107 mmol/L (98-107); CO2 26 mmol/L (21-32); CREATININE 0.7 mg/dL (0.55-1.3); GLUCOSE,RANDOM 99 mg/dL (74-106); POTASSIUM 3.8 mmol/L (3.5-5.1); SGOT/AST 113 U/L (15-37); SGPT/ALT 106 U/L (13-61); SODIUM 142 mmol/L (136-145); TOT PROT 6.5 g/dl (6.4-8.2)
[2018-02-05] MEDS: HEPARIN NA (PORCINE) 5,000 UNITS/ML 1ML VIAL SQ SCH ×2 (09:51→21:41)
--- NOTE | 2018-02-05 10:02 | PN ---
Progress Note, Physician History of Present Illness: doing well feels better says he feels better was able to walk around - Current Medication List Current Medications: Active Medications Heparin Sodium (Porcine) (Heparin -) 5,000 unit SQ BID LUIS Last Admin: 02/05/18 09:51 Dose: Not Given Piperacillin Sod/Tazobactam (Sod 3.375 gm/ Dextrose) 50 mls @ 100 mls/hr IVPB Q8H-IV LUIS; Protocol Last Admin: 02/05/18 09:51 Dose: 100 mls/hr Melatonin (Melatonin) 5 mg PO HS PRN PRN Reason: INSOMNIA Last Admin: 02/04/18 21:15 Dose: 5 mg Oxycodone HCl (Roxicodone -) 10 mg PO Q6H PRN PRN Reason: PAIN LEVEL 7 - 10 Pancrelipase (Creon Dr 36,000 Units Capsule) 1 cap PO TIDCM LUIS Last Admin: 02/05/18 08:15 Dose: 1 cap - Objective Vital Signs: Vital Signs Temperature 98.9 F 02/05/18 06:00 Pulse Rate 79 02/05/18 06:00 Respiratory Rate 02/05/18 06:00 Blood Pressure 111/64 02/05/18 06:00 O2 Sat by Pulse Oximetry (%) 95 02/04/18 20:52 Constitutional: Yes: No Distress, Calm Cardiovascular: Yes: Regular Rate and Rhythm Respiratory: Yes: Regular, CTA Bilaterally Gastrointestinal: Yes: Normal Bowel Sounds, Soft Musculoskeletal: Yes: WNL Extremities: Yes: WNL Neurological: Yes: Alert, Oriented Psychiatric: Yes: Alert, Oriented Labs: CBC, BMP 02/05/18 07:30 02/05/18 07:30 INR, PTT INR 1.67 (0.83-1.09) H 02/03/18 06:30 Assessment/Plan Problem List - Problems (1) SOB (shortness of breath) Code(s): R06.02 - SHORTNESS OF BREATH (2) Immunocompromised patient Code(s): D84.9 - IMMUNODEFICIENCY, UNSPECIFIED (3) Pancreatic cancer Code(s): C25.9 - MALIGNANT NEOPLASM OF PANCREAS, UNSPECIFIED (4) Pneumonia Code(s): J18.9 - PNEUMONIA, UNSPECIFIED ORGANISM pln continue abx monitor for any fevers incentive bonnie rest as per the team await for cx monitor wbc
--- NOTE | 2018-02-05 11:42 | PN ---
Progress Note, Physician History of Present Illness: pulmonary alert,no distress,-sob,-cough - Current Medication List Current Medications: Active Medications Heparin Sodium (Porcine) (Heparin -) 5,000 unit SQ BID LUIS Last Admin: 02/05/18 09:51 Dose: Not Given Piperacillin Sod/Tazobactam (Sod 3.375 gm/ Dextrose) 50 mls @ 100 mls/hr IVPB Q8H-IV LUIS; Protocol Last Admin: 02/05/18 09:51 Dose: 100 mls/hr Melatonin (Melatonin) 5 mg PO HS PRN PRN Reason: INSOMNIA Last Admin: 02/04/18 21:15 Dose: 5 mg Oxycodone HCl (Roxicodone -) 10 mg PO Q6H PRN PRN Reason: PAIN LEVEL 7 - 10 Pancrelipase (Creon Dr 36,000 Units Capsule) 1 cap PO TIDCM LUIS Last Admin: 02/05/18 11:27 Dose: 1 cap - Objective Vital Signs: Vital Signs Temperature 99.1 F 02/05/18 10:00 Pulse Rate 83 02/05/18 10:00 Respiratory Rate 20 02/05/18 10:00 Blood Pressure 106/70 02/05/18 10:00 O2 Sat by Pulse Oximetry (%) 95 02/05/18 09:00 Constitutional: Yes: Well Nourished, Calm Eyes: Yes: WNL HENT: Yes: WNL Neck: Yes: WNL Cardiovascular: Yes: Regular Rate and Rhythm, S1, S2 Respiratory: Yes: CTA Bilaterally Gastrointestinal: Yes: Normal Bowel Sounds, Soft Extremities: Yes: WNL Edema: No Labs: CBC, BMP 02/05/18 07:30 02/05/18 07:30 INR, PTT INR 1.67 (0.83-1.09) H 02/03/18 06:30 Assessment/Plan Problem List - Problems (1) SOB (shortness of breath) Code(s): R06.02 - SHORTNESS OF BREATH (2) Immunocompromised patient Code(s): D84.9 - IMMUNODEFICIENCY, UNSPECIFIED (3) Pancreatic cancer Code(s): C25.9 - MALIGNANT NEOPLASM OF PANCREAS, UNSPECIFIED (4) Pneumonia Code(s): J18.9 - PNEUMONIA, UNSPECIFIED ORGANISM Assessment/Plan ABX per ID: Zosyn O2 as needed VTE prophylaxis Question whether this is a chronic issue (related to previous chemotherapy) or related to his Chemo. ie.: Gemzar reported to cause interstitial pneumonitis and eventually pulmonary fibrosis. abx as per ID DR SEYMOUR
--- NOTE | 2018-02-05 15:13 | PN ---
Physical Exam: SUBJECTIVE: Patient seen and examined at the bedside. ambulating without shortness of breath. feeling better. OBJECTIVE: Vital Signs Period Temp Pulse Resp BP Sys/Ortiz Pulse Ox Last 24 Hr 98.4 F-99.1 F 79-89 20-20 95-111/60-70 95-95 GENERAL: Awake, alert, and fully oriented, in no acute distress. HEAD: Normal with no signs of trauma. EYES: Pupils equal, round and reactive to light, extraocular movements intact, sclera anicteric, conjunctiva clear. No lid lag. EARS, NOSE, THROAT: Ears normal, nares patent, oropharynx clear without exudates. Moist mucous membranes. NECK: Normal range of motion, supple without lymphadenopathy, JVD, or masses. LUNGS: breath sounds equal, clear/diminished to auscultation bilaterally. HEART: Regular rate and rhythm, normal S1 and S2 without murmur, rub or gallop. ABDOMEN: Soft, nontender, not distended, normoactive bowel sounds, no guarding, no rebound, no masses. No hepatomegaly or splenomegaly. MUSCULOSKELETAL: Normal range of motion at all joints. No bony deformities or tenderness. No CVA tenderness. UPPER EXTREMITIES: No peripheral edema. LOWER EXTREMITIES: No peripheral edema. NEUROLOGICAL: Normal speech. Normal gait. PSYCHIATRIC: Cooperative. Good eye contact. Appropriate mood and affect. SKIN: Warm, dry, normal turgor, no rashes or lesions noted, normal capillary refill. Laboratory Results - last 24 hr 02/05/18 02/05/18 07:30 07:30 WBC 2.8 L RBC 3.67 L Hgb 9.7 L Hct 30.4 L MCV 82.8 MCH 26.5 MCHC 32.0 RDW 18.2 H Plt Count 291 D MPV 8.1 Absolute Neuts (auto) 2.3 Neutrophils % 81.8 Lymphocytes % 11.5 Monocytes % 1.2 L Eosinophils % 4.3 D Basophils % 1.2 Nucleated RBC % 0 Sodium 142 Potassium 3.8 Chloride 107 Carbon Dioxide 26 Anion Gap 10 BUN 7 Creatinine 0.7 Creat Clearance w eGFR > 60 Random Glucose 99 Calcium 8.8 Total Bilirubin 0.8 AST 113 H ALT 106 H Alkaline Phosphatase 114 Total Protein 6.5 Albumin 3.0 L Active Medications Generic Name Dose Route Start Last Admin Trade Name Freq PRN Reason Stop Dose Admin Heparin Sodium (Porcine) 5,000 unit 02/02/18 22:00 02/05/18 09:51 Heparin - SQ Not Given BID LUIS Piperacillin Sod/Tazobactam 50 mls @ 100 mls/hr 02/02/18 21:45 02/05/18 09:51 Sod 3.375 gm/ Dextrose IVPB 100 mls/hr Q8H-IV LUIS Administration Protocol Melatonin 5 mg 02/03/18 00:48 02/04/18 21:15 Melatonin PO 5 mg HS PRN Administration INSOMNIA Oxycodone HCl 10 mg 02/02/18 20:07 Roxicodone - PO Q6H PRN PAIN LEVEL 7 - 10 Pancrelipase 1 cap 02/03/18 08:00 02/05/18 11:27 Creon 36,000 Units Capsule PO 1 cap TIDCM LUIS Administration ASSESSMENT/PLAN: Patient is a 47 year old male with a significant past medical of pancreatic cancer (diagnosed 2016) whipple procedure, pancreatitis and ETOH abuse He is currently undergoing chemotherapy. Patient presents to the ED with c/o of dyspnea with physical exertion and was found to have an acute pneumonia. Imaging: Chest CTA: negative for PE, acute pneumonia left upper lobe, faint and patchy opacification concerning for acute pneumonia. chest xray: no evidence of acute pulmonary disease EKG: NSR Pulmonary: Pneumonia, in the setting of immunocompromised patient with recent chemotherapy. patient able to ambulate without dyspnea. feeling better. No exertion with physical activity. Denies lightheadness and general malaise. echo reviewed. on Zosyn day #4. ID and pulmonary following. Patient on current regimen of gemcitabine/Abraxane chemo therapy. sputum culture pending. Pancreatic cancer: Currently undergoing chemotherapy (gemcitabine/abraxane). Received Neulasta 1 month ago. Monitor labs. fen tolerating PO monitor electrolytes low salt diet full code Visit type - Emergency Visit Emergency Visit: Yes ED Registration Date: 02/02/18 Care time: The patient presented to the Emergency Department on the above date and was hospitalized for further evaluation of their emergent condition. - New Patient This patient is new to me today: No - Critical Care Critical Care patient: No - Discharge Referral Referred to [facility] Med P.C.: No
[2018-02-06] MEDS: MELATONIN 5 MG TABLETS PO PRN ×2 (01:15→22:49)
[2018-02-06] MEDS ORDERED: PIPERACILLIN/TAZOBACTAM 3.375 GM VIAL IVPB ONE ×3 (02:34→17:07)
[2018-02-06] MEDS ORDERED: DEXTROSE 5%-WATER - 50 ML IVPB ONE ×3 (02:35→17:07)
[2018-02-06] MEDS: PIPERACILLIN/TAZOB 3.375 GM 3.375 GM in DEXTROSE 5%-WATER - 50 ML IVPB SCH ×3 (02:40→17:14)
[2018-02-06] MEDS: LIPASE/PROTEASE/AMYLASE 36,000 UNIT CAPSULE PO SCH ×3 (08:40→17:13)
[2018-02-06] MEDS: HEPARIN NA (PORCINE) 5,000 UNITS/ML 1ML VIAL SQ SCH ×2 (09:56→21:11)
[2018-02-06 10:49] LABS: BASO % 0.5 % (0-2.0); EOS % 3.2 % (0-4.5); HEMOGLOBIN 9.4 GM/dL (11.7-16.9); MCH 27.4 pg (25.7-33.7); MCHC 33.6 g/dl (32.0-35.9); MEAN CELL VOLUME 81.6 fl (80-96); MONO % 1.7 % (3.8-10.2); NEUT % 84.6 % (42.8-82.8); PLATELET COUNT 242 K/MM3 (134-434); RBC 3.43 M/mm3 (4.00-5.60); RDW 18.3 % (11.9-15.9); WHITE BLOOD COUNT 2.8 K/mm3 (4.0-10.0)
[2018-02-06 11:24] LABS: ALBUMIN 2.7 g/dl (3.4-5.0); ALK PHOS 110 U/L (45-117); ANION GAP 5 MMOL/L (8-16); BILIRUBIN,TOTAL 0.7 mg/dL (0.2-1); BLOOD UREA NITROGEN 8 mg/dL (7-18); CHLORIDE 106 mmol/L (98-107); CO2 26 mmol/L (21-32); CREATININE 0.8 mg/dL (0.55-1.3); GLUCOSE,RANDOM 222 mg/dL (74-106); MAGNESIUM 2.3 mg/dL (1.8-2.4); POTASSIUM 3.9 mmol/L (3.5-5.1); SGOT/AST 107 U/L (15-37); SGPT/ALT 102 U/L (13-61); SODIUM 138 mmol/L (136-145); TOT PROT 6.1 g/dl (6.4-8.2)
--- NOTE | 2018-02-06 11:28 | PN ---
Progress Note, Physician History of Present Illness: stable no issues - Current Medication List Current Medications: Active Medications Heparin Sodium (Porcine) (Heparin -) 5,000 unit SQ BID LUIS Last Admin: 02/06/18 09:56 Dose: Not Given Piperacillin Sod/Tazobactam (Sod 3.375 gm/ Dextrose) 50 mls @ 100 mls/hr IVPB Q8H-IV LUIS; Protocol Last Admin: 02/06/18 09:59 Dose: 100 mls/hr Melatonin (Melatonin) 5 mg PO HS PRN PRN Reason: INSOMNIA Last Admin: 02/06/18 01:15 Dose: 5 mg Pancrelipase (Creon Dr 36,000 Units Capsule) 1 cap PO TIDCM LUIS Last Admin: 02/06/18 08:40 Dose: Not Given - Objective Vital Signs: Vital Signs Temperature 98.8 F 02/06/18 08:53 Pulse Rate 90 02/06/18 08:53 Respiratory Rate 20 02/06/18 08:53 Blood Pressure 104/67 02/06/18 08:53 O2 Sat by Pulse Oximetry (%) 95 02/05/18 22:00 Constitutional: Yes: No Distress, Calm Cardiovascular: Yes: Regular Rate and Rhythm Respiratory: Yes: Regular, CTA Bilaterally Gastrointestinal: Yes: Normal Bowel Sounds, Soft Musculoskeletal: Yes: WNL Extremities: Yes: WNL Neurological: Yes: Alert, Oriented Psychiatric: Yes: Alert, Oriented Labs: CBC, BMP 02/06/18 10:40 02/06/18 10:40 INR, PTT INR 1.67 (0.83-1.09) H 02/03/18 06:30 Assessment/Plan Problem List - Problems (1) SOB (shortness of breath) Code(s): R06.02 - SHORTNESS OF BREATH (2) Immunocompromised patient Code(s): D84.9 - IMMUNODEFICIENCY, UNSPECIFIED (3) Pancreatic cancer Code(s): C25.9 - MALIGNANT NEOPLASM OF PANCREAS, UNSPECIFIED (4) Pneumonia Code(s): J18.9 - PNEUMONIA, UNSPECIFIED ORGANISM pln continue abx monitor for any fevers incentive bonnie rest as per the team await for cx monitor wbc will deescalte tomorrow
--- NOTE | 2018-02-06 13:04 | PN ---
Progress Note, Physician History of Present Illness: pulmonary alert,no distress,-sob at rest or exertion,less cough - Current Medication List Current Medications: Active Medications Heparin Sodium (Porcine) (Heparin -) 5,000 unit SQ BID LUIS Last Admin: 02/06/18 09:56 Dose: Not Given Piperacillin Sod/Tazobactam (Sod 3.375 gm/ Dextrose) 50 mls @ 100 mls/hr IVPB Q8H-IV LUIS; Protocol Last Admin: 02/06/18 09:59 Dose: 100 mls/hr Melatonin (Melatonin) 5 mg PO HS PRN PRN Reason: INSOMNIA Last Admin: 02/06/18 01:15 Dose: 5 mg Pancrelipase (Creon Dr 36,000 Units Capsule) 1 cap PO TIDCM LUIS Last Admin: 02/06/18 11:55 Dose: 1 cap Zolpidem Tartrate (Ambien -) 5 mg PO HS PRN PRN Reason: INSOMNIA - Objective Vital Signs: Vital Signs Temperature 98.8 F 02/06/18 08:53 Pulse Rate 90 02/06/18 08:53 Respiratory Rate 20 02/06/18 08:53 Blood Pressure 104/67 02/06/18 08:53 O2 Sat by Pulse Oximetry (%) 95 02/06/18 09:00 Constitutional: Yes: Well Nourished, Calm Eyes: Yes: WNL HENT: Yes: WNL Neck: Yes: WNL Cardiovascular: Yes: Regular Rate and Rhythm, S1, S2 Respiratory: Yes: Diminished Gastrointestinal: Yes: Normal Bowel Sounds, Soft Extremities: Yes: WNL Edema: No Labs: CBC, BMP 02/06/18 10:40 02/06/18 10:40 INR, PTT INR 1.67 (0.83-1.09) H 02/03/18 06:30 Assessment/Plan Problem List - Problems (1) SOB (shortness of breath) Code(s): R06.02 - SHORTNESS OF BREATH (2) Immunocompromised patient Code(s): D84.9 - IMMUNODEFICIENCY, UNSPECIFIED (3) Pancreatic cancer Code(s): C25.9 - MALIGNANT NEOPLASM OF PANCREAS, UNSPECIFIED (4) Pneumonia Code(s): J18.9 - PNEUMONIA, UNSPECIFIED ORGANISM Assessment/Plan ABX per ID: Zosyn O2 as needed VTE prophylaxis Question whether this is a chronic issue (related to previous chemotherapy) or related to his Chemo. ie.: Gemzar reported to cause interstitial pneumonitis and eventually pulmonary fibrosis. abx as per ID f/u with oncologist at [facility] regarding pulmonary infiltrates whether new or present on prior CTs DR SEYMOUR
--- NOTE | 2018-02-06 14:36 | PN ---
Physical Exam: SUBJECTIVE: Patient seen and examined at the bedside. reports sleeping poorly, but otherwise doing well. denies shortness of breath or dyspnea on exertion. OBJECTIVE: Vital Signs Period Temp Pulse Resp BP Sys/Ortiz Pulse Ox Last 24 Hr 98.7 F-99.4 F 78-90 20-20 103-106/62-69 95-95 GENERAL: Awake, alert, and fully oriented, in no acute distress. HEAD: Normal with no signs of trauma. EYES: Pupils equal, round and reactive to light, extraocular movements intact, sclera anicteric, conjunctiva clear. No lid lag. EARS, NOSE, THROAT: Ears normal, nares patent, oropharynx clear without exudates. Moist mucous membranes. NECK: Normal range of motion, supple without lymphadenopathy, JVD, or masses. LUNGS: breath sounds equal, clear/diminished to auscultation bilaterally. HEART: Regular rate and rhythm, normal S1 and S2 without murmur, rub or gallop. ABDOMEN: Soft, nontender, not distended, normoactive bowel sounds, no guarding, no rebound, no masses. No hepatomegaly or splenomegaly. MUSCULOSKELETAL: Normal range of motion at all joints. No bony deformities or tenderness. No CVA tenderness. UPPER EXTREMITIES: No peripheral edema. LOWER EXTREMITIES: No peripheral edema. NEUROLOGICAL: Normal speech. Normal gait. PSYCHIATRIC: Cooperative. Good eye contact. Appropriate mood and affect. SKIN: Warm, dry, normal turgor, no rashes or lesions noted, normal capillary refill. Laboratory Results - last 24 hr 02/06/18 02/06/18 10:40 10:40 WBC 2.8 L RBC 3.43 L Hgb 9.4 L Hct 28.0 L MCV 81.6 MCH 27.4 MCHC 33.6 RDW 18.3 H Plt Count 242 MPV 8.0 Absolute Neuts (auto) 2.4 Neutrophils % 84.6 H Lymphocytes % 10.0 Monocytes % 1.7 L Eosinophils % 3.2 Basophils % 0.5 Nucleated RBC % 0 Sodium 138 Potassium 3.9 Chloride 106 Carbon Dioxide 26 Anion Gap 5 L BUN 8 Creatinine 0.8 Creat Clearance w eGFR > 60 Random Glucose 222 H Calcium 8.0 L Magnesium 2.3 Total Bilirubin 0.7 AST 107 H ALT 102 H Alkaline Phosphatase 110 Total Protein 6.1 L Albumin 2.7 L Active Medications Generic Name Dose Route Start Last Admin Trade Name Freq PRN Reason Stop Dose Admin Heparin Sodium (Porcine) 5,000 unit 02/02/18 22:00 02/06/18 09:56 Heparin - SQ Not Given BID LUIS Piperacillin Sod/Tazobactam 50 mls @ 100 mls/hr 02/02/18 21:45 02/06/18 09:59 Sod 3.375 gm/ Dextrose IVPB 100 mls/hr Q8H-IV LUIS Administration Protocol Melatonin 5 mg 02/03/18 00:48 02/06/18 01:15 Melatonin PO 5 mg HS PRN Administration INSOMNIA Pancrelipase 1 cap 02/03/18 08:00 02/06/18 11:55 Creon 36,000 Units Capsule PO 1 cap TIDCM LUIS Administration Zolpidem Tartrate 5 mg 02/06/18 22:00 Ambien - PO HS PRN INSOMNIA ASSESSMENT/PLAN: Patient is a 47 year old male with a significant past medical of pancreatic cancer (diagnosed 2016) whipple procedure, pancreatitis and ETOH abuse He is currently undergoing chemotherapy. Patient presents to the ED with c/o of dyspnea with physical exertion and was found to have an acute pneumonia. Imaging: Chest CTA: negative for PE, acute pneumonia left upper lobe, faint and patchy opacification concerning for acute pneumonia. chest xray: no evidence of acute pulmonary disease EKG: NSR Pulmonary: Pneumonia, in the setting of immunocompromised patient with recent chemotherapy. patient now able to ambulate without dyspnea. Denies lightheadness and general malaise. echo reviewed. on Zosyn day #5. ID and pulmonary following. Patient on current regimen of gemcitabine/Abraxane chemo therapy. sputum culture with normal suzanne. Pancreatic cancer: Currently undergoing chemotherapy (gemcitabine/abraxane). Received Neulasta 1 month ago. Next chemo scheduled for next week. GI: elevated ast/alt, no abdominal pain. downtrending since admission and ast/alt lower than previous admissions. will order hepatitis panel for a.m. fen tolerating PO monitor electrolytes low salt diet full code
[2018-02-06] MEDS ORDERED: PT OWN MED DRAWER 7, Y5N ONE (17:35)
[2018-02-06] MEDS ORDERED: ZOLPIDEM TARTRATE 5 MG TABLET PO PRN (22:00)
[2018-02-07] MEDS ORDERED: PIPERACILLIN/TAZOBACTAM 3.375 GM VIAL IVPB ONE ×2 (02:39→10:56)
[2018-02-07] MEDS ORDERED: DEXTROSE 5%-WATER - 50 ML IVPB ONE ×2 (02:39→10:56)
[2018-02-07] MEDS: PIPERACILLIN/TAZOB 3.375 GM 3.375 GM in DEXTROSE 5%-WATER - 50 ML IVPB SCH ×2 (02:43→11:10)
[2018-02-07] MEDS ORDERED: PT OWN MED DRAWER 7, Y5N ONE ×2 (08:32→11:50)
[2018-02-07] MEDS: LIPASE/PROTEASE/AMYLASE 36,000 UNIT CAPSULE PO SCH ×2 (08:34→11:53)
[2018-02-07 10:05] LABS: BASO % 2.4 % (0-2.0); EOS % 2.8 % (0-4.5); HEMATOCRIT 31.2 % (35.4-49); LYMPH % 17.6 % (8-40); MCH 26.6 pg (25.7-33.7); MEAN CELL VOLUME 82.9 fl (80-96); MEAN PLT VOLUME 8.2 fl (7.5-11.1); MONO % 3.2 % (3.8-10.2); PLATELET COUNT 261 K/MM3 (134-434); RBC 3.76 M/mm3 (4.00-5.60); WHITE BLOOD COUNT 2.3 K/mm3 (4.0-10.0)
[2018-02-07] MEDS: HEPARIN NA (PORCINE) 5,000 UNITS/ML 1ML VIAL SQ SCH (11:07)
[2018-02-07 11:35] LABS: ALBUMIN 3.1 g/dl (3.4-5.0); ALK PHOS 126 U/L (45-117); ANION GAP 7 MMOL/L (8-16); BILIRUBIN,TOTAL 0.7 mg/dL (0.2-1); BLOOD UREA NITROGEN 9 mg/dL (7-18); CALCIUM 8.6 mg/dL (8.5-10.1); CHLORIDE 105 mmol/L (98-107); CO2 26 mmol/L (21-32); CREATININE 0.8 mg/dL (0.55-1.3); GLUCOSE,RANDOM 183 mg/dL (74-106); MAGNESIUM 2.2 mg/dL (1.8-2.4); POTASSIUM 4.3 mmol/L (3.5-5.1); SGOT/AST 106 U/L (15-37); SGPT/ALT 109 U/L (13-61); SODIUM 138 mmol/L (136-145)
--- NOTE | 2018-02-07 11:39 | DS ---
Physical Exam: SUBJECTIVE: Patient seen and examined in the solarium. dressed and ready to go home. Receiving morning dose of Zosyn OBJECTIVE: discharge home with close pcp and oncology follow up Vital Signs Period Temp Pulse Resp BP Sys/Ortiz Pulse Ox Last 24 Hr 98.5 F-98.5 F 86-88 20-20 106-113/60-65 95 PHYSICAL EXAM GENERAL: Awake, alert, and fully oriented, in no acute distress. HEAD: Normal with no signs of trauma. EYES: Pupils equal, round and reactive to light, extraocular movements intact, sclera anicteric, conjunctiva clear. No lid lag. EARS, NOSE, THROAT: Ears normal, nares patent, oropharynx clear without exudates. Moist mucous membranes. NECK: Normal range of motion, supple without lymphadenopathy, JVD, or masses. LUNGS: breath sounds equal, clear/diminished to auscultation bilaterally. HEART: Regular rate and rhythm, normal S1 and S2 without murmur, rub or gallop. ABDOMEN: Soft, nontender, not distended, normoactive bowel sounds, no guarding, no rebound, no masses. No hepatomegaly or splenomegaly. MUSCULOSKELETAL: Normal range of motion at all joints. No bony deformities or tenderness. No CVA tenderness. UPPER EXTREMITIES: No peripheral edema. LOWER EXTREMITIES: No peripheral edema. NEUROLOGICAL: Normal speech. Normal gait. PSYCHIATRIC: Cooperative. Good eye contact. Appropriate mood and affect. SKIN: Warm, dry, normal turgor, no rashes or lesions noted, normal capillary refill. LABS Laboratory Results - last 24 hr 02/07/18 02/07/18 09:20 09:20 WBC 2.3 L RBC 3.76 L Hgb 10.0 L Hct 31.2 L MCV 82.9 MCH 26.6 MCHC 32.0 RDW 18.0 H Plt Count 261 MPV 8.2 Absolute Neuts (auto) 1.7 Neutrophils % 74.0 Lymphocytes % 17.6 D Monocytes % 3.2 L D Eosinophils % 2.8 Basophils % 2.4 H D Nucleated RBC % 0 Sodium 138 Potassium 4.3 Chloride 105 Carbon Dioxide 26 Anion Gap 7 L BUN 9 Creatinine 0.8 Creat Clearance w eGFR > 60 Random Glucose 183 H Calcium 8.6 Magnesium 2.2 Total Bilirubin 0.7 AST 106 H ALT 109 H Alkaline Phosphatase 126 H Total Protein 7.0 Albumin 3.1 L HOSPITAL COURSE: Date of Admission:02/02/18 Date of Discharge: 02/07/18 Hospital course by problem list. Patient is a 47 year old male with a significant past medical of pancreatic cancer (diagnosed 2016) s/p whipple procedure, pancreatitis and ETOH abuse He is currently undergoing chemotherapy. Patient presents to the ED with c/o of dyspnea with physical exertion and was found to have an acute pneumonia. Imaging: Chest CTA: negative for PE, acute pneumonia left upper lobe, faint and patchy opacification concerning for acute pneumonia. chest xray: no evidence of acute pulmonary disease EKG: NSR Pulmonary: Pneumonia, in the setting of immunocompromised patient with recent chemotherapy. Patient has received Zosyn IV from 02/02>. His blood and urine cultures are negative. Sputum culture shows normal suzanne. Patient is now able to ambulate without dyspnea. Denies any dizziness or lightheadness. An echo was completed which was normal. During hospitalization, patient was followed by a loan operations specialist. Patient to be discharged home on Augmentin 875mg BID for 5 more days. Shortness of breath in the setting of acute pneumonia, resolved. tolerating room air. ambulating without dyspnea. Pancreatic cancer: Currently undergoing chemotherapy (gemcitabine/abraxane). Received Neulasta 1 month ago. Next chemo scheduled for this week. GI: elevated ast/alt, no abdominal pain. downtrending since admission and ast/alt lower than previous admissions. hepatitis panel ordered and pending. discharge home. Minutes to complete discharge: 60 Discharge Summary Reason For Visit: PNEUMONIA Current Active Problems Immunocompromised patient (Acute) Pancreatic cancer (Acute) Pneumonia (Acute) SOB (shortness of breath) (Acute) Condition: Improved - Instructions Diet, Activity, Other Instructions: Mr. Kendrick: You were admitted for pneumonia and were treated with intravenous antibiotics of Zosyn. We will be sending you home today on oral antibiotics of Augmentin 875mg twice daily for 5 more days. A hepatitis panel was ordered for you for your elevated liver levels. Please have the levels repeated with your oncologist or you can retrieve your medical records here. Please call me with any questions that you may have. [facility] @ [facility] [phone] Referrals: Natalie Arriaga MD [Staff Physician] - ON STAFF,NOT [Primary Care Provider] - Disposition: HOME - Home Medications Comprehensive Discharge Medication List: Ambulatory Orders NK [No Known Home Medication] 02/02/18 This patient is new to me today: No Emergency Visit: Yes ED Registration Date: 02/02/18 Care time: The patient presented to the Emergency Department on the above date and was hospitalized for further evaluation of their emergent condition. Critical Care patient: No - Discharge Referral Referred to [facility] Med P.C.: No
--- NOTE | 2018-02-07 12:03 | PN ---
Progress Note, Physician History of Present Illness: stable doing well no complaints - Current Medication List Current Medications: Active Medications Heparin Sodium (Porcine) (Heparin -) 5,000 unit SQ BID LUIS Last Admin: 02/07/18 11:07 Dose: Not Given Piperacillin Sod/Tazobactam (Sod 3.375 gm/ Dextrose) 50 mls @ 100 mls/hr IVPB Q8H-IV LUIS; Protocol Last Admin: 02/07/18 11:10 Dose: 100 mls/hr Melatonin (Melatonin) 5 mg PO HS PRN PRN Reason: INSOMNIA Last Admin: 02/06/18 22:49 Dose: 5 mg Pancrelipase (Creon Dr 36,000 Units Capsule) 1 cap PO TIDCM LUIS Last Admin: 02/07/18 11:53 Dose: 1 cap Zolpidem Tartrate (Ambien -) 5 mg PO HS PRN PRN Reason: INSOMNIA - Objective Vital Signs: Vital Signs Temperature 98.5 F 02/06/18 22:00 Pulse Rate 88 02/06/18 22:00 Respiratory Rate 20 02/06/18 22:00 Blood Pressure 106/65 02/06/18 22:00 O2 Sat by Pulse Oximetry (%) 95 02/06/18 22:00 Constitutional: Yes: No Distress, Calm Cardiovascular: Yes: Regular Rate and Rhythm Respiratory: Yes: Regular, CTA Bilaterally Gastrointestinal: Yes: Normal Bowel Sounds, Soft Musculoskeletal: Yes: WNL Extremities: Yes: WNL Neurological: Yes: Alert, Oriented Psychiatric: Yes: Alert, Oriented Labs: CBC, BMP 02/07/18 09:20 02/07/18 09:20 INR, PTT INR 1.67 (0.83-1.09) H 02/03/18 06:30 Assessment/Plan Problem List - Problems (1) SOB (shortness of breath) Code(s): R06.02 - SHORTNESS OF BREATH (2) Immunocompromised patient Code(s): D84.9 - IMMUNODEFICIENCY, UNSPECIFIED (3) Pancreatic cancer Code(s): C25.9 - MALIGNANT NEOPLASM OF PANCREAS, UNSPECIFIED (4) Pneumonia Code(s): J18.9 - PNEUMONIA, UNSPECIFIED ORGANISM pln can change to oral augmentin to continue for 5 more days incentive bonnie rest as per the team
[2018-02-07 12:06] VITALS: BP 109/76; PULSE 82; TEMP 98.9
--- NOTE | 2018-02-07 12:33 | DS ---
Physical Exam: SUBJECTIVE: Patient seen and examined OBJECTIVE: Vital Signs Period Temp Pulse Resp BP Sys/Ortiz Pulse Ox Last 24 Hr 98.5 F-98.9 F 82-88 20-20 106-113/60-76 95-95 PHYSICAL EXAM GENERAL: The patient is awake, alert, and fully oriented, in no acute distress. HEAD: Normal with no signs of trauma. EYES: PERRL, extraocular movements intact, sclera anicteric, conjunctiva clear. ENT: Ears normal, nares patent, oropharynx clear without exudates, moist mucous membranes. NECK: Trachea midline, full range of motion, supple. LUNGS: Breath sounds equal, clear to auscultation bilaterally, no wheezes, no crackles, no accessory muscle use. HEART: Regular rate and rhythm, S1, S2 without murmur, rub or gallop. ABDOMEN: Soft, nontender, nondistended, normoactive bowel sounds, no guarding, no rebound, no hepatosplenomegaly, no masses. EXTREMITIES: 2+ pulses, warm, well-perfused, no edema. NEUROLOGICAL: Cranial nerves II through XII grossly intact. Normal speech, gait not observed. PSYCH: Normal mood, normal affect. SKIN: Warm, dry, normal turgor, no rashes or lesions noted. LABS Laboratory Results - last 24 hr 02/07/18 02/07/18 09:20 09:20 WBC 2.3 L RBC 3.76 L Hgb 10.0 L Hct 31.2 L MCV 82.9 MCH 26.6 MCHC 32.0 RDW 18.0 H Plt Count 261 MPV 8.2 Absolute Neuts (auto) 1.7 Neutrophils % 74.0 Lymphocytes % 17.6 D Monocytes % 3.2 L D Eosinophils % 2.8 Basophils % 2.4 H D Nucleated RBC % 0 Sodium 138 Potassium 4.3 Chloride 105 Carbon Dioxide 26 Anion Gap 7 L BUN 9 Creatinine 0.8 Creat Clearance w eGFR > 60 Random Glucose 183 H Calcium 8.6 Magnesium 2.2 Total Bilirubin 0.7 AST 106 H ALT 109 H Alkaline Phosphatase 126 H Total Protein 7.0 Albumin 3.1 L HOSPITAL COURSE: Date of Admission:02/02/18 Date of Discharge: 02/07/18 Discharge Summary Reason For Visit: PNEUMONIA Current Active Problems Immunocompromised patient (Acute) Pancreatic cancer (Acute) Pneumonia (Acute) SOB (shortness of breath) (Acute) Condition: Guarded - Instructions Diet, Activity, Other Instructions: hepatitis panel Referrals: ON STAFF,NOT [Primary Care Provider] - - Home Medications Comprehensive Discharge Medication List: Ambulatory Orders NK [No Known Home Medication] 02/02/18 - Discharge Referral Referred to [facility] Med P.C.: No
[2018-02-08 06:06] LABS: HBSAG SCREEN Negative (Negative); HEP B CORE AB, TOT Negative (Negative)
== END 2018-02-07 13:07 | disposition home or self-care (01) | DRG 139 ==
LOC: JER 11:49 → JERBED 15:06 → J6S 18:30
PROVIDERS: ADMIT Internal Medicine; ATTEND Nurse Practitioner Family
DX: J18.9 Pneumonia, unspecified organism (principal); C25.9 Malignant neoplasm of pancreas, unspecified; R06.02 Shortness of breath; D84.9 Immunodeficiency, unspecified; Z51.11 Encounter for antineoplastic chemotherapy; Z87.891 Personal history of nicotine dependence
CPT/HCPCS: 36415; 71045-TC-FY; 71275-TC; 80048; 80053; 81003; 83605; 83735; 83880; 84450; 84460; 84484; 85025; 85027; 85610; 85730; 86704; 86706; 86708; 86850; 86900; 86901; 87040; 87070; 87086; 87205; 87340; 87899; 93005; 93010; 93306-TC; 99282-25; J1644; J7030